=== PATIENT | male | born 1955 | race Two or more races ===

== ENCOUNTER 2021-07-30 23:43 | Observation (INO) ==
[2021-07-31] MEDS ORDERED: ADENOSINE 6 MG/2 ML VIAL ONE (00:03)
[2021-07-31] MEDS ORDERED: DILTIAZEM 25 MG/5 ML VIAL IV ONE (00:17)
[2021-07-31] MEDS ORDERED: DILTIAZEM 50 MG/10 ML VIAL IV STA (00:17)
[2021-07-31 00:33] LABS: Basophils # 0.1 10*3/uL (0.0-0.2); Basophils % 0.6 % (0.0-0.8); Eosinophils # 0.3 10*3/uL (0.0-0.87); Eosinophils % 2.7 % (0.00-10.9); Hematocrit 40.6 VOL% (42.0-52.0); Hemoglobin 14.3 GM/DL (14.0-18.0); Immature Granulocytes % 0.6 %; Immature Granulocytes Absolute 0.06 #; Lymphocytes # 2.2 10*3/uL (1.4-4.0); Lymphocytes % 23.1 % (21.2-54.2); Mean Corpuscular HGB Conc 35.2 GM/DL (32-36); Mean Corpuscular Volume 94.2 FL (87-102); Mean Platelet Volume 11.7 FL (9.6-12.0); Monocytes % 15.9 % (1.7-12.7); NRBC # 0.07 10*3/uL; Neutrophils % 57.1 % (38.7-73.9); Platelet Count 148 T/CUMM (130-400); Red Blood Count 4.31 MC/CUMM (3.8-5.5); Red Cell Distribution Width 15.9 % (9.3-17.3); White Blood Count 9.3 T/CUMM (4-12)
[2021-07-31 00:42] LABS: INR 1.1; Partial Thromboplastin Time 30.7 SECS (23.8-32.1)
[2021-07-31 01:27] LABS: Eosinophils 3 % (0-10); Lymphocytes 18 % (20-55); Platelet Estimate Adequate; Segmented Neutrophils 72 % (50-85); Total Cells Counted 100
[2021-07-31 01:34] LABS: Albumin 3.2 G/DL (3.4-5.0); Bilirubin,Total 1.1 MG/DL (0.20-1.00); Calcium 8.4 MG/DL (8.5-10.1); Osmolality,Calculated 262.8 MOS/KG (273-304); Potassium 3.7 MMOL/L (3.5-5.1); Thyroid Stimulating Hormone 1.41 uIU/ml (0.358-3.74); Total Protein 7.3 G/DL (6.4-8.2)
[2021-07-31] MEDS ORDERED: SODIUM CHLORIDE 0.9% 1,000 ML IV STA (01:44)
[2021-07-31] MEDS ORDERED: MAGNESIUM SULF RIDER 2 GM/50 ML PREMIX IV STA (01:44)
[2021-07-31] MEDS ORDERED: ACETAMINOPHEN 325 MG TABLET PO PRN (05:12)
[2021-07-31] MEDS ORDERED: GLUCAGON 1 MG VIAL IM PRN (05:12)
[2021-07-31] MEDS ORDERED: SODIUM CHLORIDE 0.9% 1,000 ML IV SCH (05:30)
[2021-07-31] MEDS ORDERED: DEXTROSE 10% 250 ML BAG IV PRN (05:31)
[2021-07-31] MEDS ORDERED: carvediloL 6.25 MG TABLET PO ONE (06:00)
[2021-07-31] MEDS: HEPARIN 5,000 UNIT/1 ML VIAL SUBCUT SCH ×2 (06:15→21:52)
[2021-07-31 06:23] LABS: Barbiturates Screen,Urine Negative (Negative); Benzodiazepines Screen,Urine Negative (Negative); Cannabinoid Screen,Urine Negative (Negative); Opiate Screen,Urine Negative (Negative); Phencyclidine Screen,Urine Negative (Negative)
[2021-07-31 06:35] LABS: Calcium 8.3 MG/DL (8.5-10.1); Osmolality,Calculated 266.4 MOS/KG (273-304); Potassium 3.5 MMOL/L (3.5-5.1)
[2021-07-31] MEDS ORDERED: INFLUENZA VIRUS VACCINE 0.5 ML SYRINGE IM ONE (18:43)
[2021-07-31] MEDS ORDERED: PNEUMOCOCCAL VACCINE (13 VALENT) 0.5 ML SYRINGE IM ONE (18:45)
[2021-07-31] MEDS ORDERED: carvediloL 6.25 MG TABLET PO SCH (21:00)
[2021-08-01] MEDS: HEPARIN 5,000 UNIT/1 ML VIAL SUBCUT SCH ×2 (05:55→18:34)
[2021-08-01 06:09] LABS: Risk Ratio 2.04; VLDL Cholesterol 14.2 MG/DL
[2021-08-01 07:53] LABS: Calcium 7.8 MG/DL (8.5-10.1); Osmolality,Calculated 270.1 MOS/KG (273-304); Potassium 3.1 MMOL/L (3.5-5.1)
[2021-08-01] MEDS ORDERED: POTASSIUM CHLORIDE 20 MEQ TABLET PO ONE (08:23)
[2021-08-01] MEDS: METOPROLOL TARTRATE 50 MG TABLET PO SCH ×2 (08:29→20:42)
[2021-08-01] MEDS: VERAPAMIL SR 120 MG TABLET PO SCH ×2 (08:29→20:42)
[2021-08-01] MEDS ORDERED: MECLIZINE 25 MG TABLET PO PRN (10:00)
[2021-08-01] MEDS ORDERED: LEVALBUTEROL 0.63 MG/3 ML NEB RESP TX PRN (14:07)
[2021-08-02 05:34] LABS: Calcium 8.2 MG/DL (8.5-10.1); Potassium 3.5 MMOL/L (3.5-5.1)
[2021-08-02] MEDS: HEPARIN 5,000 UNIT/1 ML VIAL SUBCUT SCH (06:08)
[2021-08-02 08:43] VITALS: BP 138/85
[2021-08-02] MEDS: METOPROLOL TARTRATE 50 MG TABLET PO SCH (09:10)
[2021-08-02] MEDS: VERAPAMIL SR 120 MG TABLET PO SCH (09:10)
== END 2021-08-02 12:45 | disposition home or self-care (01) ==
LOC: EDUNIT# → EDBD → N.ED 23:43 → N.EDINP 23:43 → SUATTDRO 07-31 05:12 → N.TELES 07-31 18:00
PROVIDERS: ADMIT Internal Medicine; ATTEND Emergency Medicine

== ENCOUNTER 2022-01-12 21:51 | Observation (INO) ==
[2022-01-12] MEDS ORDERED: SODIUM CHLORIDE 0.9% 500 ML IV STA (22:29)
[2022-01-12] MEDS ORDERED: PANTOPRAZOLE 40 MG VIAL IV STA (22:29)
[2022-01-12] MEDS ORDERED: ONDANSETRON 4 MG/2 ML VIAL IV STA (22:29)
[2022-01-12 22:40] LABS: Basophils # 0.1 10*3/uL (0.0-0.2); Basophils % 0.6 % (0.0-0.8); Eosinophils # 0.1 10*3/uL (0.0-0.87); Hematocrit 38.3 VOL% (42.0-52.0); Immature Granulocytes % 0.3 %; Immature Granulocytes Absolute 0.04 #; Lymphocytes % 17.2 % (21.2-54.2); Mean Corpuscular HGB Conc 33.9 GM/DL (32-36); Mean Corpuscular Volume 93.9 FL (87-102); Mean Platelet Volume 11.6 FL (9.6-12.0); Monocytes # 1.5 10*3/uL (0.11-0.8); Monocytes % 12.4 % (1.7-12.7); NRBC # 0.02 10*3/uL; Neutrophils % 68.5 % (38.7-73.9); Platelet Count 168 T/CUMM (130-400); Red Blood Count 4.08 MC/CUMM (3.8-5.5); Red Cell Distribution Width 15.8 % (9.3-17.3); White Blood Count 11.9 T/CUMM (4-12)
[2022-01-12 22:45] LABS: PT Patient Result 11.2 SECS (10.1-12.1)
[2022-01-12 22:53] LABS: Albumin 3.9 G/DL (3.4-5.0); Bilirubin,Total 1.2 MG/DL (0.20-1.00); Calcium 9.1 MG/DL (8.5-10.1); Potassium 3.3 MMOL/L (3.5-5.1); Total Protein 7.5 G/DL (6.4-8.2)
[2022-01-12 23:07] LABS: Lymphocytes 18 % (20-55); Platelet Estimate Adequate; Total Cells Counted 100
[2022-01-12] MEDS ORDERED: POTASSIUM CHLORIDE 20 MEQ TABLET PO STA (23:22)
[2022-01-12] MEDS ORDERED: MAGNESIUM SULF RIDER 2 GM/50 ML PREMIX IV STA (23:22)
[2022-01-13] MEDS ORDERED: ONDANSETRON 4 MG/2 ML VIAL IV PRN (00:07)
[2022-01-13 04:24] LABS: Basophils # 0.1 10*3/uL (0.0-0.2); Basophils % 0.7 % (0.0-0.8); Eosinophils # 0.1 10*3/uL (0.0-0.87); Eosinophils % 1.1 % (0.00-10.9); Hematocrit 36.2 VOL% (42.0-52.0); Hemoglobin 12.3 GM/DL (14.0-18.0); Immature Granulocytes % 0.3 %; Immature Granulocytes Absolute 0.04 #; Lymphocytes # 1.7 10*3/uL (1.4-4.0); Lymphocytes % 14.3 % (21.2-54.2); Mean Corpuscular Volume 95.3 FL (87-102); Mean Platelet Volume 10.6 FL (9.6-12.0); Monocytes # 1.4 10*3/uL (0.11-0.8); Monocytes % 11.7 % (1.7-12.7); Neutrophils % 71.9 % (38.7-73.9); Platelet Count 137 T/CUMM (130-400); Red Cell Distribution Width 15.9 % (9.3-17.3); White Blood Count 11.8 T/CUMM (4-12)
[2022-01-13] MEDS ORDERED: ALBUTEROL 2.5 MG/3 ML NEB RESP TX ONE (05:56)
[2022-01-13 07:25] LABS: Hemoglobin 12.4 GM/DL (14.0-18.0)
[2022-01-13] MEDS ORDERED: PNEUMOCOCCAL VACCINE (13 VALENT) 0.5 ML SYRINGE IM ONE (07:39)
[2022-01-13 07:40] LABS: Albumin 3.4 G/DL (3.4-5.0); Bilirubin,Total 1.3 MG/DL (0.20-1.00); Calcium 8.7 MG/DL (8.5-10.1); Potassium 3.5 MMOL/L (3.5-5.1); Total Protein 6.6 G/DL (6.4-8.2)
[2022-01-13] MEDS: PANTOPRAZOLE 40 MG TABLET PO SCH (10:09)
[2022-01-13] MEDS ORDERED: MECLIZINE 25 MG TABLET PO PRN (10:43)
[2022-01-13] MEDS ORDERED: METOPROLOL TARTRATE 5 MG/5 ML VIAL IV ONE (10:45)
[2022-01-13] MEDS ORDERED: ALBUTEROL 2.5 MG/3 ML NEB RESP TX PRN (10:47)
[2022-01-13] MEDS: VERAPAMIL SR 120 MG TABLET PO SCH ×2 (10:56→21:19)
[2022-01-13] MEDS ORDERED: METOPROLOL TARTRATE 50 MG TABLET PO SCH (11:00)
[2022-01-13] MEDS ORDERED: POTASSIUM CHLORIDE 20 MEQ TABLET PO PRN (13:09)
[2022-01-13] MEDS ORDERED: MAGNESIUM SULF RIDER 4 GM/100 ML PREMIX IV PRN (13:09)
[2022-01-13] MEDS ORDERED: MAGNESIUM SULF RIDER 2 GM/50 ML PREMIX IV PRN (13:09)
[2022-01-13 13:15] LABS: Hematocrit 38.1 VOL% (42.0-52.0); Hemoglobin 13.1 GM/DL (14.0-18.0)
[2022-01-13] MEDS ORDERED: POTASSIUM CHLORIDE 20 MEQ TABLET PO ONE (13:23)
[2022-01-13] MEDS ORDERED: BISACODYL 5 MG TABLET PO ONE (15:00)
[2022-01-13] MEDS ORDERED: POLYETHYLENE GLYCOL POWDER 255 GM BOTTLE PO ONE (18:00)
[2022-01-13] MEDS: BUDESONIDE/FORMOTEROL 160-4.5 INHALER 6 GM INH SCH (21:19)
[2022-01-13] MEDS: METOPROLOL TARTRATE 100 MG TABLET PO SCH (21:19)
[2022-01-14] MEDS ORDERED: POLYETHYLENE GLYCOL POWDER 255 GM BOTTLE PO ONE (05:00)
[2022-01-14 06:48] LABS: Basophils # 0.1 10*3/uL (0.0-0.2); Basophils % 0.5 % (0.0-0.8); Eosinophils # 0.2 10*3/uL (0.0-0.87); Eosinophils % 1.5 % (0.00-10.9); Hematocrit 36.9 VOL% (42.0-52.0); Hemoglobin 12.8 GM/DL (14.0-18.0); Immature Granulocytes % 0.4 %; Immature Granulocytes Absolute 0.06 #; Lymphocytes # 1.9 10*3/uL (1.4-4.0); Mean Corpuscular HGB Conc 34.7 GM/DL (32-36); Mean Corpuscular Volume 94.9 FL (87-102); Mean Platelet Volume 10.8 FL (9.6-12.0); Monocytes # 1.5 10*3/uL (0.11-0.8); Monocytes % 10.1 % (1.7-12.7); NRBC # 0.02 10*3/uL; Neutrophils % 74.5 % (38.7-73.9); Platelet Count 159 T/CUMM (130-400); Red Blood Count 3.89 MC/CUMM (3.8-5.5); Red Cell Distribution Width 15.6 % (9.3-17.3); White Blood Count 14.7 T/CUMM (4-12)
[2022-01-14 06:58] LABS: PT Patient Result 11.2 SECS (10.1-12.1)
[2022-01-14 07:11] LABS: Band Neutrophils 1 % (0-10); Eosinophils 3 % (0-10); Lymphocytes 21 % (20-55); Nucleated Red Blood Cells 1 /100 WBC (0-5); Platelet Estimate Adequate; Total Cells Counted 100
[2022-01-14 07:15] LABS: Calcium 8.4 MG/DL (8.5-10.1); Potassium 3.3 MMOL/L (3.5-5.1)
[2022-01-14] MEDS ORDERED: POTASSIUM CHLORIDE 20 MEQ TABLET PO ONE (07:23)
[2022-01-14] MEDS ORDERED: MAGNESIUM SULF RIDER 2 GM/50 ML PREMIX IV ONE (07:25)
[2022-01-14] MEDS: LACTATED RINGERS 1,000 ML IV SCH (08:33)
[2022-01-14] MEDS: PANTOPRAZOLE 40 MG TABLET PO SCH (08:37)
[2022-01-14] MEDS: METOPROLOL TARTRATE 100 MG TABLET PO SCH ×2 (08:54→20:21)
[2022-01-14] MEDS ORDERED: ASPIRIN CHEW 81 MG TABLET PO SCH (09:00)
[2022-01-14] MEDS ORDERED: VERAPAMIL SR 180 MG TABLET PO SCH (09:00)
[2022-01-14] MEDS: BUDESONIDE/FORMOTEROL 160-4.5 INHALER 6 GM INH SCH ×2 (12:05→20:21)
[2022-01-14] MEDS ORDERED: LIDOCAINE 2% 5 ML VIAL ONE (13:00)
[2022-01-14] MEDS ORDERED: propofoL 200 MG/20 ML VIAL IV ONE (13:00)
[2022-01-14] MEDS ORDERED: PHENYLEPHRINE 1 MG/10 ML SYRINGE IV ONE (13:17)
[2022-01-14] MEDS ORDERED: ETOMIDATE 20 MG/10 ML VIAL IV ONE (13:17)
[2022-01-14] MEDS: VERAPAMIL SR 120 MG TABLET PO SCH (20:21)
[2022-01-15] MEDS: ACETAMINOPHEN 325 MG TABLET PO PRN ×2 (03:33→10:12)
[2022-01-15 04:36] LABS: Basophils # 0.1 10*3/uL (0.0-0.2); Basophils % 0.6 % (0.0-0.8); Eosinophils # 0.3 10*3/uL (0.0-0.87); Eosinophils % 2.2 % (0.00-10.9); Hematocrit 33.1 VOL% (42.0-52.0); Hemoglobin 11.4 GM/DL (14.0-18.0); Immature Granulocytes % 0.7 %; Immature Granulocytes Absolute 0.08 #; Lymphocytes % 17.9 % (21.2-54.2); Mean Corpuscular HGB Conc 34.4 GM/DL (32-36); Mean Corpuscular Volume 95.1 FL (87-102); Mean Platelet Volume 11.5 FL (9.6-12.0); Monocytes # 1.4 10*3/uL (0.11-0.8); Monocytes % 12.1 % (1.7-12.7); Neutrophils % 66.5 % (38.7-73.9); Platelet Count 146 T/CUMM (130-400); Red Blood Count 3.48 MC/CUMM (3.8-5.5); Red Cell Distribution Width 15.5 % (9.3-17.3); White Blood Count 11.3 T/CUMM (4-12)
[2022-01-15 05:07] LABS: Calcium 8.5 MG/DL (8.5-10.1); Osmolality,Calculated 265.2 MOS/KG (273-304); Potassium 3.6 MMOL/L (3.5-5.1)
[2022-01-15] MEDS ORDERED: MAGNESIUM SULF RIDER 2 GM/50 ML PREMIX IV ONE (08:53)
[2022-01-15] MEDS ORDERED: POTASSIUM CHLORIDE 20 MEQ TABLET PO ONE (08:53)
[2022-01-15] MEDS: VERAPAMIL SR 120 MG TABLET PO SCH (09:58)
[2022-01-15] MEDS: METOPROLOL TARTRATE 100 MG TABLET PO SCH (10:12)
[2022-01-15] MEDS: PANTOPRAZOLE 40 MG TABLET PO SCH (10:12)
[2022-01-15] MEDS: BUDESONIDE/FORMOTEROL 160-4.5 INHALER 6 GM INH SCH (10:13)
[2022-01-15] MEDS: LACTATED RINGERS 1,000 ML IV SCH (10:18)
[2022-01-15 17:05] VITALS: BP 97/57
[2022-01-15] MEDS ORDERED: VERAPAMIL SR 180 MG TABLET PO SCH (21:00)
[2022-01-16] MEDS ORDERED: POTASSIUM CHLORIDE 20 MEQ TABLET PO SCH (09:00)
[2022-01-16] MEDS ORDERED: MAGNESIUM CHLORIDE 64 MG TABLET PO SCH (09:00)
== END 2022-01-15 17:51 | disposition home or self-care (01) ==
LOC: N.EDINP 21:51 → N.ED 21:51 → SUATTDRO 01-13 00:07 → N.EDINP 01-13 09:12 → N.5E 01-13 09:20 → N.TELES 01-13 12:26
PROVIDERS: ADMIT Internal Medicine; ATTEND Internal Medicine

== ENCOUNTER 2022-02-08 11:05 | Observation (INO) ==
[2022-02-08] MEDS ORDERED: ALBUTEROL 2.5 MG/3 ML NEB RESP TX STA (13:29)
[2022-02-08] MEDS ORDERED: ACETAMINOPHEN 325 MG TABLET PO PRN (13:31)
[2022-02-08] MEDS ORDERED: THIAMINE INJ 100 MG, FOLIC ACID INJ 1 MG, MAGNESIUM SULF INJ 2 GM, MULTIVITAMIN INJ 10 ... IV ONE (13:32)
[2022-02-08 13:34] LABS: Basophils # 0.1 10*3/uL (0.0-0.2); Eosinophils # 0.2 10*3/uL (0.0-0.87); Eosinophils % 2.7 % (0.00-10.9); Hematocrit 32.9 VOL% (42.0-52.0); Hemoglobin 11.1 GM/DL (14.0-18.0); Immature Granulocytes % 0.5 %; Immature Granulocytes Absolute 0.03 #; Lymphocytes # 1.2 10*3/uL (1.4-4.0); Mean Corpuscular HGB Conc 33.7 GM/DL (32-36); Mean Corpuscular Volume 95.9 FL (87-102); Mean Platelet Volume 10.4 FL (9.6-12.0); Monocytes % 16.3 % (1.7-12.7); Neutrophils % 59.5 % (38.7-73.9); Platelet Count 146 T/CUMM (130-400); Red Blood Count 3.43 MC/CUMM (3.8-5.5); Red Cell Distribution Width 16.9 % (9.3-17.3); White Blood Count 6.2 T/CUMM (4-12)
[2022-02-08 13:57] LABS: Calcium 8.8 MG/DL (8.5-10.1); Osmolality,Calculated 271.7 MOS/KG (273-304); Potassium 4.8 MMOL/L (3.5-5.1)
[2022-02-08 13:58] LABS: Eosinophils 3 % (0-10); Lymphocytes 21 % (20-55); Total Cells Counted 100
[2022-02-08 13:59] LABS: Target Cells Few
[2022-02-08 14:09] LABS: Platelet Estimate Normal
[2022-02-08 14:10] LABS: Reactive Lymphocytes Slight
[2022-02-08] MEDS: ENOXAPARIN 40 MG/0.4 ML SYRINGE SUBCUT SCH (21:12)
[2022-02-08] MEDS: METOPROLOL TARTRATE 100 MG TABLET PO SCH (22:01)
[2022-02-08] MEDS: VERAPAMIL SR 180 MG TABLET PO SCH (22:01)
[2022-02-08] MEDS: ONDANSETRON 4 MG/2 ML VIAL IV PRN (22:26)
[2022-02-09] MEDS: PANTOPRAZOLE 40 MG TABLET PO SCH (08:52)
[2022-02-09] MEDS: VERAPAMIL SR 180 MG TABLET PO SCH ×2 (08:52→21:32)
[2022-02-09] MEDS: METOPROLOL TARTRATE 100 MG TABLET PO SCH ×2 (08:52→21:32)
[2022-02-09] MEDS ORDERED: HYDROmorphone 1 MG/1 ML SYRINGE IV PRN (09:08)
[2022-02-09] MEDS: KETOROLAC 15 MG/1 ML VIAL IV SCH ×3 (09:36→21:32)
[2022-02-09] MEDS: ONDANSETRON 4 MG/2 ML VIAL IV PRN (10:54)
[2022-02-09] MEDS ORDERED: MECLIZINE 25 MG TABLET PO PRN (11:01)
[2022-02-09] MEDS ORDERED: ALBUTEROL 2.5 MG/3 ML NEB RESP TX PRN (11:12)
[2022-02-09] MEDS: GABAPENTIN 100 MG CAPSULE PO SCH ×2 (15:47→21:32)
[2022-02-09] MEDS: ENOXAPARIN 40 MG/0.4 ML SYRINGE SUBCUT SCH (21:32)
[2022-02-10] MEDS: KETOROLAC 15 MG/1 ML VIAL IV SCH ×2 (02:30→08:39)
[2022-02-10] MEDS: GABAPENTIN 100 MG CAPSULE PO SCH (08:38)
[2022-02-10] MEDS: VERAPAMIL SR 180 MG TABLET PO SCH (08:38)
[2022-02-10] MEDS: METOPROLOL TARTRATE 100 MG TABLET PO SCH (08:38)
[2022-02-10] MEDS: PANTOPRAZOLE 40 MG TABLET PO SCH (08:38)
[2022-02-10 08:43] VITALS: BP 147/76
[2022-02-11] MEDS ORDERED: ASPIRIN CHEW 81 MG TABLET PO SCH (09:00)
== END 2022-02-10 10:19 | disposition home or self-care (01) ==
LOC: N.EDINP 11:05 → N.ED 11:05 → N.3E 14:37
PROVIDERS: ADMIT Surgery; ATTEND Surgery